=== PATIENT | male | born 1960 | race Hispanic/Latino ===

== ENCOUNTER → 2020-05-06 | Outpatient (CLI) | payer BC | END | disposition home or self-care (01) | LOC: RAH 15:23 | PROVIDERS: ATTEND Family Medicine | DX: U07.1 COVID-19 (principal); R06.02 Shortness of breath; R91.8 Other nonspecific abnormal finding of lung field | CPT/HCPCS: 71046 ==

== ENCOUNTER → 2020-09-23 | Outpatient (CLI) | payer BC | END | disposition home or self-care (01) | LOC: OIH 10:03 | PROVIDERS: ATTEND Family Medicine | DX: I10 Essential (primary) hypertension (principal); M47.815 Spondylosis without myelopathy or radiculopathy, thoracolumbar region | CPT/HCPCS: 71046 ==

== ENCOUNTER 2025-04-22 06:57 | Observation (INO) | payer OTHER ==
[2025-04-18 10:52] LABS: CREATININE 0.8 mg/dL (0.5-1.3); GLOMERULAR FILTR. RATE CALC 98.0 mL/min (>90); GLUCOSE,RANDOM 120.0 mg/dL (70-105); SODIUM SERUM 139.0 mmol/L (136-145); UREA NITROGEN, BLOOD 18.0 mg/dL (7-18)
[2025-04-18 11:31] VITALS: BP 141/76; PULSE 66; RESP 18; TEMP 97.5
--- NOTE | 2025-04-18 11:47 | NUR ---
PREOP INCENTIVE SPIROMETRY TEACHING DONE BY STEWART SALMERON
[~2025-04-22] VITALS: Ht 177.8 cm; Wt 76.2 kg
[2025-04-22] VITALS (27 sets, daily range): BP systolic 119–141; BP diastolic 56–98; PULSE 66–96; RESP 14–18; TEMP 97.1–98.9; O2SAT 96
[~2025-04-22 06:57] MED LIST: AMLO-258 PO; FENO145T26 PO; GLIP5TAB15 PO; METF-446 PO; ROSU5TAB51 PO; VALS320T16 PO
[2025-04-22] MEDS ORDERED: LIDOCAINE PF 100MG/5ML (2%) SYRINGE 5ML ONE (09:08)
[2025-04-22] MEDS ORDERED: MIDAZOLAM HCL 1 MG/ML 2ML VIAL ONE (09:09)
[2025-04-22] MEDS ORDERED: SUCCINYLCHOLINE CHLORIDE 20 MG/ML 10 ML VIAL ONE (09:09)
[2025-04-22] MEDS: TRANEXAMIC ACID 1000MG/10ML ONE (10:04)
--- NOTE | 2025-04-22 11:53 | OP ---
Operative Note: DATE OF PROCEDURE: 04/22/25 PREOPERATIVE DIAGNOSIS: Left knee osteoarthritis. POSTOPERATIVE DIAGNOSIS: Left knee osteoarthritis. PROCEDURE PERFORMED: Left knee total knee arthroplasty. SURGEON: Junie Bowers MD COMMUNICATIONS ENGINEERING TECHNICIAN: Severo Pineda and Daniela Vieira. ANESTHESIA: General with adductor canal block. ANESTHESIA: ALEXANDRU Love. ESTIMATED BLOOD LOSS: 50cc. COMPLICATIONS: None. DRAINS: None. SPECIMENS REMOVED: resected bone. Not sent to pathology. IMPLANTS: [employer] II BCS size 7 Oxinium femur, size 5 tibial base plate, 35 mm patella, 9 mm polyethylene STATEMENT OF MEDICAL NECESSITY: The patient is a 64-year-old male who suffers from left knee posttraumatic osteoarthritis failing conservative management. After discussion of the risks, benefits, and alternatives with the patient, they voluntarily agreed to undergo the aforementioned procedure. DESCRIPTION OF PROCEDURE: Patient was properly identified in the preoperative holding area. Surgical site marking was verified and surgery consent reviewed. The patient was then taken to the operating room and placed in supine position on the OR table. After induction of general anesthesia, preoperative antibiotics were given, all bony prominences were well-padded, and a well padded tourniquet was applied but not inflated at this time. The left lower extremity was then prepped and draped in usual sterile fashion. Surgical time out was done verifying correct surgery, side, site, and location to be performed. We then began the procedure by exsanguinating the limb using an Esmarch and inflating the tourniquet to 350 mmHg. At this point, we made an anterior midline incision using a 10 blade, coming down sharply the level of the fascia. Skin flaps were elevated medially and laterally. We then obtained a clean 10 blade and performed a standard medial parapatellar arthrotomy. We excised the infrapatellar fat pad. We performed our soft tissue releases off of the tibia. We transected the ACL and removed the anterior portion of the medial & lateral meniscus. We then brought the knee into hyperflexion with the patella everted. We used our entry reamer to enter the femoral canal. We then placed our intramedullary cutting guide for our distal femoral cutting block. We then performed our distal femoral osteotomy ensuring appropriate rotation and removed the bony wafer. We then removed these pins and block and then used jig 2 to size the distal femur with the after mentioned size found. We then placed our 5-in-1 cutting block in 3 degrees of external rotation and took our 5 cuts ensuring to protect the patellar tendon and the collateral ligaments. We then removed the cutting block and our bony fragments using a curved osteotome. We then placed our PCL retractor subluxating the tibia anteriorly. Using an extra medullary tibial cutting guide, we hung the block for our proximal tibial cut taking 2 mm off the more diseased portion. Prior to pinning this block in place, we ensured appropriate varus/valgus alignment and posterior slope similar to the houlton slope of the patient's knee. We then performed our proximal tibial osteotomy and removed the bony wafer using Bovie electrocautery to release any remaining soft tissue attachments. Due to be limitations preoperatively on both flexion and extension, we elected to go ahead and take a plus two resection off of the tibial side. We then used our tibial sizing paddle and checked once more for varus & valgus alignment and found this to be appropriate. At this point, we pinned our tibial paddle in place. We then removed the PCL retractor and subluxated the tibia posteriorly while we placed our femoral trial component. We then finished preparing the notch with the reamer and box chisel. The notch portion of the trial femoral component was then placed. A posterior stabilized polyethylene, size 9 trial was placed. The knee was then taken through range of motion and found to have stable full range of motion. We then placed a bump under the ankle and everted the patella to perform our freehand cut of the undersurface the patella. We then sized our patella and reamed to the lug holes for this. We placed our trial patellar component and begin to take the knee through range of motion. The patella had significant lateral tracking which improved after performing a lateral release. At this point we began removing our trial components and punched the tibial keel prior to removing our tibial trial component. Final components were opened and cement was mixed on the back table while we injected local cocktail in the posterior capsule. We then thoroughly irrigated out the bone and dried the bony surfaces. We cemented our tibial component in place ensuring to remove excess cement and placed our trial polyethylene. We then cemented our femoral component in place once again taking time to ensure excess cement was removed leg was brought into full extension to help squeeze the excess cement from around the femoral component. We then brought the knee back in a flexion to remove this portion of the cement at this point we placed the ankle in a bump thoroughly irrigated off the patellar component and cemented our patellar component in standard fashion again removing excess cement. While we waited for the cement to cure, we thoroughly irrigated out the wound with normal saline. Once our cement had cured, we took the knee through a range of motion and found full and stable range of motion. We then elected to use the size [9] polyethylene and removed our trial polyethylene. We impacted our final polyethylene component in place in standard fashion and took the knee through a range of motion check once more. This was satisfactory so we began to repair the arthrotomy using #5 Ethibond and #1 Vicryl in interrupted [id number] fashion. Subcutaneous tissue was repaired using 2-0 Vicryl. Running subcuticular 3-0 Monocryl stitch with Dermabond placed over this for the skin. We then applied a foam barrier dressing and a pressure dressing consisting of 4 x 4's fluffs and an Tony wrap. The tourniquet was then deflated. Patient was awakened from anesthesia, and they were taken to the recovery room in stable condition. JUNIE BOWERS MD Apr 22, 2025 11:53
--- NOTE | 2025-04-22 11:55 | DS ---
Discharge Summary Hospital Course Summary: The patient was admitted to the hospital postoperatively on 04/22/2025 after undergoing left total knee arthroplasty. They did well with routine postoperative pain control. They worked well with physical therapy. They developed some acute blood loss anemia but remained asymptomatic. The hospital course was otherwise uncomplicated. They were subsequently able to be discharged on postoperative day [] once discharge arrangements were made with care home facility. Ground Support Equipment Assembler(s): None Procedure(s): Left total knee arthroplasty, 04/22/2025 Assessment/Plan: ASSESSMENT: Status post left total knee arthroplasty Asymptomatic acute blood loss anemia PLAN: See discharge instructions Discharge Instructions: Begin working with physical therapy at the facility. Dressing may be removed 04/24/2025 and left open to air. Showers ok allowing soap and water to run over the wound. Pat dry. Do not submerge wound in tub/pool. Do not apply ointments. Do not apply Betadine. Do not apply peroxide. Ice packs to decrease pain/swelling. Prescriptions have been sent to the pharmacy: *[place] 5/325mg 1-2 tab every 6 hours as needed for severe pain. (please call for refills) Cyclobenzaprine 5mg 1 tab every 8 hours as needed for muscle spasm pain. Gabapentin 100mg 1 tab every 8 hours (may discontinue if drowsy). Colace 100mg 1 tab orally twice a day as needed for constipation. Aspirin 325mg twice a day for 30 days to prevent blood clots. Call for a follow-up appointment in 2-3 weeks at [facility]. Home Medications: Reported Medications Glipizide (Glipizide) 5 Mg Tablet, 5 MG PO AM, TAB 04/18/25 Amlodipine Besylate (Amlodipine Besylate) 10 Mg Tablet, 10 MG PO DAILY for 30 Days, #30 TAB 0 Refills 04/18/25 Rosuvastatin Calcium (Rosuvastatin Calcium) 5 Mg Tablet, 5 MG PO HS, TAB 04/18/25 Valsartan (Valsartan) 320 Mg Tablet, 320 MG PO HS, TAB 04/18/25 Fenofibrate Nanocrystallized (Fenofibrate) 145 Mg Tablet, 145 MG PO AM, TAB 04/18/25 Metformin HCl (Metformin HCl) 1,000 Mg Tablet, 1000 MG PO BID, TAB 04/18/25 CHAD CHO MD Apr 22, 2025 11:55
[2025-04-22] MEDS ORDERED: FERROUS FUMARATE 324 MG TABLET PO PRN (12:00)
[2025-04-22] MEDS ORDERED: PoTASSium chloRIDE 20MEQ ER 20 MEQ ERTAB PO PRN (12:00)
[2025-04-22] MEDS ORDERED: CALCIUM CARB 500MG PO PRN (12:00)
[2025-04-22] MEDS: TRANEXAMIC ACID 1000MG/10ML IV ONE ×2 (12:04)
[2025-04-22] MEDS: 0.9%NACL 1000ML 1,000 ML IV ONE (13:07)
[2025-04-22] MEDS: SUGAMMADEX SODIUM 200 MG/2 ML VIAL IV ONE (13:07)
[2025-04-22] MEDS: 0.9%NACL 1000ML 1,000 ML IV SCH (13:20)
--- NOTE | 2025-04-22 13:24 | HMCIMG ---
EXAM: CR Left Knee, 2 View. CLINICAL HISTORY: S/P LEFT TKA SURGERY COMPARISON: None provided. FINDINGS: Left total knee arthroplasty is in near anatomic alignment. Appropriate postsurgical changes within the soft tissues around the knee joint. Knee joint effusion. IMPRESSION: 1. Left total knee arthroplasty in near anatomic alignment with knee joint effusion. /[place]
[2025-04-22] MEDS: HYDROcodone/APAP 5/325 1 TAB TABLET PO PRN (15:24)
[2025-04-22] MEDS: CYCLOBENZAPRINE HCL 10 MG TABLET PO PRN (15:24)
[2025-04-23 06:34] LABS: NUCLEATED RED BLOOD CELLS 0.0 % (0.0-0.19); PLATELET COUNT (AUTO) 169.0 K/uL (130-400); RED BLOOD CELL COUNT(AUTO) 3.68 MIL/uL (4.50-6.20); RED CELL DISTRIBUTION WIDTH 12.4 % (11.0-15.5); WHITE BLOOD COUNT (AUTO) 7.3 K/uL (4.8-10.8)
[2025-04-23 06:43] LABS: CREATININE 0.8 mg/dL (0.5-1.3); GLOMERULAR FILTR. RATE CALC 98.0 mL/min (>90); GLUCOSE,RANDOM 133.0 mg/dL (70-105); SODIUM SERUM 136.0 mmol/L (136-145); UREA NITROGEN, BLOOD 11.0 mg/dL (7-18)
[2025-04-23 08:00] VITALS: O2SAT 100
[2025-04-23 08:02] VITALS: BP 145/75; PULSE 72; RESP 16; TEMP 98.6
[2025-04-23] MEDS: PoTASSium chl 10% ELIXIR 20MEQ 20 MEQ/15 ML UDCUP PO PRN (08:16)
[2025-04-23] MEDS: ASPIRIN 325MG EC TAB PO SCH (08:16)
[2025-04-23] MEDS: amLODIPine 5 MG TAB PO SCH (08:18)
[2025-04-23] MEDS: FENOFIBRATE NANOCRYSTALLIZED 145 MG TAB PO SCH (08:18)
[2025-04-23 11:24] VITALS: BP 135/61; PULSE 77; RESP 18; TEMP 98.1
--- NOTE | 2025-04-23 13:27 | PN ---
Postop day one Patient reports he is doing well. States pain present but controlled. Reports was able to walk with physical therapy both yesterday afternoon and this morning. Signs stable, afebrile No acute distress, alert and oriented x3 Nonlabored breathing Reclined comfortably in bed at the time of my visit with the bed flexed under the knees MATY still present on left leg. This removed. Remainder surgical dressing intact, clean, dry. Lateral sided bruising. Mild amount of edema. Calf soft nontender. Knee held in approximately 20 of flexion while lying in bed. Ambulated with physical therapy 30/50 feet yesterday p.m./this morning. The This has been accepted to [facility] for discharge H&H was 10 in31 this morning CBG 130-250s Postop day one status post left total knee arthroplasty -encouraged to continue working on hamstring stretching as he was able to achieve full extension intraoperatively -discharge to [facility] this afternoon Vitals/Labs Vital Signs Date Time Temp Pulse Resp B/P (MAP) Pulse Ox O2 Delivery O2 Flow Rate FiO2 04/23/25 11:24 98.1 77 18 135/61 99 Room Air 04/23/25 08:00 0 21 Laboratory Tests 04/23/25 06:08 Medications Current Medications Cefazolin Sodium 2 gm STK-MED ONCE .ROUTE Last administered on 04/22/25at 09:54; Start 04/22/25 at 07:58; Stop 04/22/25 at 07:59; Status DC Sodium Chloride 1,000 ml @ As Directed STK-MED ONCE IV; Start 04/22/25 at 07:58; Stop 04/22/25 at 07:59; Status DC Ketorolac Tromethamine 30 mg STK-MED ONCE .ROUTE Last administered on 04/22/25at 11:10; Start 04/22/25 at 09:03; Stop 04/22/25 at 09:03; Status DC Ropivacaine 150 mg STK-MED ONCE .ROUTE Last administered on 04/22/25at 11:10; Start 04/22/25 at 09:04; Stop 04/22/25 at 09:04; Status DC Lidocaine HCl 100 mg STK-MED ONCE .ROUTE; Start 04/22/25 at 09:08; Stop 04/22/25 at 09:08; Status DC Ondansetron HCl 4 mg STK-MED ONCE .ROUTE; Start 04/22/25 at 09:08; Stop 04/22/25 at 09:08; Status DC Dexamethasone Sodium Phosphate 10 mg STK-MED ONCE .ROUTE; Start 04/22/25 at 09:08; Stop 04/22/25 at 09:08; Status DC Ketamine HCl 50 mg STK-MED ONCE .ROUTE; Start 04/22/25 at 09:09; Stop 04/22/25 at 09:09; Status DC Succinylcholine Chloride 200 mg STK-MED ONCE .ROUTE; Start 04/22/25 at 09:09; Stop 04/22/25 at 09:09; Status DC Propofol 200 mg STK-MED ONCE IV; Start 04/22/25 at 09:09; Stop 04/22/25 at 09:09; Status DC Phenylephrine HCl 10 mg STK-MED ONCE IV; Start 04/22/25 at 09:09; Stop 04/22/25 at 09:10; Status DC Midazolam HCl 2 mg STK-MED ONCE .ROUTE; Start 04/22/25 at 09:09; Stop 04/22/25 at 09:10; Status DC Rocuronium [place] 50 mg STK-MED ONCE .ROUTE; Start 04/22/25 at 09:10; Stop 04/22/25 at 09:10; Status DC Fentanyl Citrate 100 mcg STK-MED ONCE .ROUTE; Start 04/22/25 at 09:10; Stop 04/22/25 at 09:10; Status DC Ropivacaine 150 mg STK-MED ONCE .ROUTE; Start 04/22/25 at 09:16; Stop 04/22/25 at 09:17; Status DC Ephedrine Sulfate 50 mg STK-MED ONCE .ROUTE; Start 04/22/25 at 09:57; Stop 04/22/25 at 09:57; Status DC Tranexamic Acid 1,000 mg STK-MED ONCE .ROUTE Last administered on 04/22/25at 10:04; Start 04/22/25 at 10:04; Stop 04/22/25 at 10:04; Status DC Rocuronium [place] 50 mg STK-MED ONCE .ROUTE; Start 04/22/25 at 10:18; Stop 04/22/25 at 10:19; Status DC Tranexamic Acid 1,000 mg STK-MED ONCE IV; Start 04/22/25 at 00:00; Stop 04/22/25 at 00:01; Status Cancel Fentanyl Citrate 100 mcg STK-MED ONCE .ROUTE; Start 04/22/25 at 11:11; Stop 04/22/25 at 11:12; Status DC Sodium Chloride 1,000 ml @ 100 mls/hr Q10H IV Last administered on 04/22/25at 21:52; Start 04/22/25 at 12:00; Stop 04/23/25 at 11:59; Status DC Polyethylene Glycol 17 gm DAILY PO Last administered on 04/23/25at 08:16; Start 04/23/25 at 09:00; Stop 05/23/25 at 08:59 Bisacodyl 10 mg DAILY PRN RC; Start 04/25/25 at 12:00; Stop 05/25/25 at 11:59 Ketorolac Tromethamine 15 mg Q6H PRN IV; Start 04/23/25 at 12:00; Stop 04/28/25 at 11:59 Ferrous Fumarate 324 mg DAILY PRN PO; Start 04/22/25 at 12:00; Stop 05/22/25 at 11:59 Ondansetron HCl 4 mg Q6H PRN IVP; Start 04/22/25 at 12:00; Stop 05/22/25 at 11:59 Calcium Carbonate 500 mg Q12H PRN PO; Start 04/22/25 at 12:00; Stop 05/22/25 at 11:59 Insulin Human Regular INSULIN SLIDING SCAL... ACHS SQ Last administered on 04/23/25at 12:16; Start 04/22/25 at 16:30; Stop 05/22/25 at 16:29 Cefazolin Sodium 2 gm Q8H IVP Last administered on 04/23/25at 00:07; Start 04/22/25 at 17:00; Stop 04/23/25 at 01:01; Status DC Cyclobenzaprine HCl 5 mg Q8H PRN PO Last administered on 04/23/25at 08:18; Start 04/22/25 at 12:00; Stop 05/22/25 at 11:59 Gabapentin 100 mg TID PO Last administered on 04/23/25at 08:17; Start 04/22/25 at 14:00; Stop 05/22/25 at 13:59 Aspirin 325 mg DAILY PO Last administered on 04/23/25at 08:16; Start 04/23/25 at 09:00; Stop 05/23/25 at 08:59 Ketorolac Tromethamine 15 mg Q8H IV Last administered on 04/23/25at 03:47; Start 04/22/25 at 12:00; Stop 04/23/25 at 04:01; Status DC Docusate Sodium 100 mg BID PO Last administered on 04/23/25at 08:18; Start 04/22/25 at 21:00; Stop 05/22/25 at 20:59 Potassium Chloride 100 ml @ 100 mls/hr AD PRN IV; Start 04/22/25 at 12:00; Stop 05/22/25 at 11:59 Potassium Chloride 20 meq AD PRN PO Last administered on 04/23/25at 08:16; Start 04/22/25 at 12:00; Stop 05/22/25 at 11:59 Potassium Chloride 20 meq AD PRN PO; Start 04/22/25 at 12:00; Stop 05/22/25 at 11:59 Tramadol HCl 50 mg Q6H PRN PO; Start 04/22/25 at 12:00; Stop 04/27/25 at 11:59 Acetaminophen/ Hydrocodone Bitart Q4H PRN PO Last administered on 04/23/25at 12:26; Start 04/22/25 at 12:00; Stop 04/27/25 at 11:59 Fenofibrate 145 mg AM PO Last administered on 04/23/25at 08:18; Start 04/23/25 at 09:00; Stop 05/23/25 at 08:59 Glipizide 5 mg AM PO Last administered on 04/23/25at 08:18; Start 04/23/25 at 09:00; Stop 05/23/25 at 08:59 Amlodipine Besylate 10 mg DAILY PO Last administered on 04/23/25at 08:18; Start 04/23/25 at 09:00; Stop 05/23/25 at 08:59 Metformin HCl 1,000 mg BID PO Last administered on 04/23/25at 08:16; Start 04/22/25 at 21:00; Stop 05/22/25 at 20:59 Atorvastatin Calcium 20 mg HS PO Last administered on 04/22/25at 20:31; Start 04/22/25 at 21:00; Stop 05/22/25 at 20:59 Losartan Potassium 100 mg HS PO Last administered on 04/22/25at 20:31; Start 04/22/25 at 21:00; Stop 05/22/25 at 20:59 Tranexamic Acid 1,000 mg STK-MED ONCE IV Last administered on 04/22/25at 12:04; Start 04/22/25 at 12:04; Stop 04/22/25 at 12:21; Status DC Ketorolac Tromethamine 15 mg STK-MED ONCE .ROUTE Last administered on 04/22/25at 13:04; Start 04/22/25 at 13:00; Stop 04/22/25 at 13:01; Status DC CHAD CHO MD Apr 23, 2025 13:27
[2025-04-23] MEDS ORDERED: GABA100C PO (13:30)
[2025-04-23] MEDS ORDERED: DOCU-116 PO (13:30)
[2025-04-23] MEDS ORDERED: CYCL-309 PO (13:30)
[2025-04-23] MEDS ORDERED: ASPI-891 PO (13:30)
[2025-04-23] MEDS ORDERED: HYDR-4060 PO (13:30)
--- NOTE | 2025-04-23 15:15 | NUR ---
Ortho Coordinator: Teaching regarding DVT and pneumonia prevention, pain management and pain expectations. Patient in bed. B SCD's in place and functioning. Incentive spirometer at bedside. Patient able to verbalize proper frequency of use. Patient return demonstrated proper foot flexion and extension exercises. Patient reports pain under control. Reviewed numeric pain scale. Patient intends to discharge to rehab. Reviewed process and expectations while in rehab. Patient encouraged to continue premedicating prior to physical therapy and periods of high activity, to continue use of incentive spirometer until ambulation increases, to continue foot flexion and extension exercises, to increase ambulation and hydrate. Rationale provided for all teaching. Patient verbalized understanding to all instructions. No additional questions or concerns at this time.
--- NOTE | 2025-04-23 15:30 | NUR ---
DISCHARGE DISCHARGE ORDERS OBTAINED FOR PATIENT TO BE DISCHARGED AND TRANSFERRED TO [facility]. DISCHARGE INSTRUCTIONS AND DOCUMENTATION GIVEN TO PATIENT AND FAMILY AT BEDSIDE. VOICED UNDERSTANDING. IV DISCONTINUED, CATHETER INTACT, NO S/S OF INFECTION NOTED TO AREA. BANDS REMOVED PRIOR TO DISCHARGE. PENDING TRANSPORTATION FROM [facility] REPORT CALLED INTO [place], SPOKE WITH TRACI HEAD. PROVIDED WITH PATIENT'S CONDITION, HX AND MD'S ORDERS. VOICED UNDERSTANDING.
[2025-04-23 16:34] VITALS: BP 152/76; PULSE 84; RESP 18; TEMP 98.3
[2025-04-23 16:44] VITALS: BP 152/76; PULSE 84; RESP 18; TEMP 98.3
--- NOTE | 2025-04-23 17:54 | NUR ---
UPDATE CONTACTED [facility], SPOKE WITH WELL SERVICING RIG OPERATOR WHO STATED [facility] EN ROUTE BACK FROM PICKING UP DIALYSIS PATIENT AND WILL STOP AT HOSPITAL FOR TRANSPORT.
--- NOTE | 2025-04-23 18:47 | NUR ---
DISCHARGE PATIENT LEFT VIA WHEELCHAIR, ACCOMPANIED BY FACILITY BLOCK BREAKER OPERATOR. NO S/S OF DISTRESS NOTED.
== END 2025-04-23 18:45 ==
LOC: DAH 06:57 → DAHIP 06:58 → 4CH 12:55
PROVIDERS: ADMIT Student in an Organized Health Care Education/Training Program; ATTEND Student in an Organized Health Care Education/Training Program
DX: M17.32 Unilateral post-traumatic osteoarthritis, left knee (principal); M25.662 Stiffness of left knee, not elsewhere classified; M25.562 Pain in left knee; E11.9 Type 2 diabetes mellitus without complications; I10 Essential (primary) hypertension; E78.5 Hyperlipidemia, unspecified; D62 Acute posthemorrhagic anemia; Z79.899 Other long term (current) drug therapy; Z98.890 Other specified postprocedural states
CPT/HCPCS: 80048 ×2; 84134; 86140; 36415 ×2; 87641; 27447; 96365; 96375; 64447; 82948 ×7; 73560; 97161; 97116 ×2; 96376; 96366; 85027; 97530; J1815 ×4; G0378 ×36; A4600; A4223 ×2; A4663; J3010 ×2; J3490 ×6; J1100; J0330; J7030; J2003; J2250; J2704; J2405; J1885 ×4; J2795 ×2; J2371; J0690 ×3; C1713 ×2; C1776 ×2; A4649 ×2; A4930 ×2; A6255; A5120; A4215; A4213; A4222; A4221; A4216